=== PATIENT | female | born 1990 | race Hispanic/Latino ===

== ENCOUNTER 2023-03-15 04:55 | Emergency (ER) | payer OTHER ==
[~2023-03-15] VITALS: Ht 157.5 cm; Wt 55.0 kg
[2023-03-15] MEDS ORDERED: FLUORESCEIN OPHTH 1MG STRIP OU ONE (07:10)
[2023-03-15] MEDS ORDERED: FLON27.5 NARES (07:42)
[2023-03-15] MEDS ORDERED: OLOP2.5D3 OU (07:42)
[2023-03-15] MEDS ORDERED: CETI-24 PO (07:42)
[2023-03-15 08:01] VITALS: BP 128/82
== END 2023-03-15 08:03 | disposition home or self-care (01) ==
LOC: M ED 04:55
DX: H10.13 Acute atopic conjunctivitis, bilateral (principal); J30.9 Allergic rhinitis, unspecified

== ENCOUNTER 2023-05-30 19:13 | Emergency (ER) | payer OTHER ==
[~2023-05-30] VITALS: Ht 157.5 cm; Wt 56.4 kg
[~2023-05-30 19:13] MED LIST: CETI-24 PO; FLON27.5 NARES; OLOP2.5D3 OU
[2023-05-30] MEDS ORDERED: CEPHALEXIN 500 MG CAP PO ONE (21:30)
[2023-05-30] MEDS ORDERED: CEPH500C PO (21:57)
[2023-05-30 22:02] VITALS: BP 112/67; TEMP 98.1; O2SAT 98
== END 2023-05-30 22:08 | disposition home or self-care (01) ==
LOC: M ED 19:13
DX: S81.811A Laceration without foreign body, right lower leg, initial encounter (principal); W26.8XXA Contact with other sharp object(s), not elsewhere classified, initial encounter; Y92.89 Other specified places as the place of occurrence of the external cause; Y93.89 Activity, other specified; Y99.8 Other external cause status; L03.115 Cellulitis of right lower limb